=== PATIENT | male | born 1975 | race Caucasian/White ===

== ENCOUNTER 2017-03-19 06:16 | Emergency (ER) | payer SELFPAY | END 2017-03-19 07:45 | LOC: ED 06:16 | DX: B35.4 Tinea corporis (principal); B86 Scabies | CPT/HCPCS: 99283 ==

== ENCOUNTER 2017-03-31 18:13 | Emergency (ER) | payer SELFPAY ==
[~2017-03-31] VITALS: Ht 190.5 cm; Wt 93.3 kg
[2017-03-31 18:17] VITALS: BP 99/70
== END 2017-03-31 19:33 | disposition home or self-care (01) ==
LOC: ED 19:27
DX: T16.2XXA Foreign body in left ear, initial encounter (principal); Z90.49 Acquired absence of other specified parts of digestive tract; X58.XXXA Exposure to other specified factors, initial encounter; Y93.89 Activity, other specified; Y99.8 Other external cause status; Y92.89 Other specified places as the place of occurrence of the external cause
CPT/HCPCS: 69200

== ENCOUNTER 2017-06-08 13:00 | Emergency (ER) | payer OTHER ==
[~2017-06-08] VITALS: Ht 190.5 cm; Wt 92.9 kg
[2017-06-08 13:00] VITALS: BP 115/80
[2017-06-08] MEDS ORDERED: HYDROcodone/APAP 5/325 TABLET PO PRN (13:30)
[2017-06-08] MEDS ORDERED: KETOROLAC 30 MG/1 ML IM ONE (13:30)
[2017-06-08] MEDS ORDERED: KETOROLAC 30 MG/1 ML ONE (13:35)
[2017-06-08] MEDS ORDERED: HYDROcodone/APAP 5/325 TABLET ONE (13:35)
== END 2017-06-08 14:22 | disposition home or self-care (01) ==
LOC: ED 14:16
DX: M77.9 Enthesopathy, unspecified (principal)
CPT/HCPCS: 29125; 73110; 96372; 99284; J1885

== ENCOUNTER 2018-08-31 03:34 | Emergency (ER) | payer MEDICAID ==
[~2018-08-31] VITALS: Ht 190.5 cm; Wt 89.7 kg
[2018-08-31] MEDS ORDERED: KETOROLAC 30 MG/1 ML ONE (04:22)
[2018-08-31] MEDS ORDERED: KETOROLAC 30 MG/1 ML IM ONE (04:30)
[2018-08-31] MEDS ORDERED: HYDROcodone/APAP 5/325 TABLET PO PRN (04:30)
[2018-08-31 05:15] VITALS: BP 143/96
== END 2018-08-31 05:17 | disposition home or self-care (01) ==
LOC: ED 03:53
DX: S30.1XXA Contusion of abdominal wall, initial encounter (principal); F17.210 Nicotine dependence, cigarettes, uncomplicated; Z90.49 Acquired absence of other specified parts of digestive tract; W01.0XXA Fall on same level from slipping, tripping and stumbling without subsequent striking against object, initial encounter; Y93.89 Activity, other specified; Y99.8 Other external cause status; Y92.89 Other specified places as the place of occurrence of the external cause
CPT/HCPCS: 71101; 96372; 99284; J1885

== ENCOUNTER 2019-12-16 18:55 | Emergency (ER) | payer MEDICAID ==
[~2019-12-16] VITALS: Ht 190.5 cm; Wt 84.8 kg
[2019-12-16 19:03] VITALS: BP 129/87
--- NOTE | 2019-12-16 19:32 | NUR ---
NO ANSWER WHEN CALLED TO BE ROOMED @ 1916
--- NOTE | 2019-12-16 19:43 | NUR ---
NO ANSWER WHEN CALLED TO BE ROOMED @ 1943.
--- NOTE | 2019-12-16 20:06 | NUR ---
NO ANSWER WHEN CALLED TO BE ROOMED @ 2005.
== END 2019-12-16 20:13 | disposition left against medical advice (07) ==
LOC: ED 20:00
DX: M79.641 Pain in right hand (principal); Z53.21 Procedure and treatment not carried out due to patient leaving prior to being seen by health care provider

== ENCOUNTER 2019-12-20 13:09 | Emergency (ER) | payer MEDICAID ==
[~2019-12-20] VITALS: Ht 190.5 cm; Wt 82.9 kg
[2019-12-20 13:16] VITALS: BP 153/93
[2019-12-20] MEDS ORDERED: NEOSPORIN OINT. PKT 1 PACKET ONE (13:40)
[2019-12-20] MEDS ORDERED: DIPH,PERTUSS(ACELL),TET VAC/PF 0.5 ML IM-VACC ONE ×2 (13:48→14:00)
== END 2019-12-20 13:54 ==
LOC: ED 13:48
DX: L03.113 Cellulitis of right upper limb (principal); K21.9 Gastro-esophageal reflux disease without esophagitis; Z90.49 Acquired absence of other specified parts of digestive tract
CPT/HCPCS: 90471; 90715; 99283

== ENCOUNTER 2020-01-01 08:11 | Emergency (ER) | payer MEDICAID ==
[~2020-01-01] VITALS: Ht 190.5 cm; Wt 83.0 kg
[2020-01-01 08:13] VITALS: BP 160/104
--- NOTE | 2020-01-01 09:04 | NUR ---
Patient/Caregiver given discharge instructions and they have confirmed that they understand the instructions. Patient ambulatory with steady gait. PT LEFT WITH ALL PERSONAL BELONGINGS.
== END 2020-01-01 09:05 | disposition home or self-care (01) ==
LOC: ED 08:38
DX: L03.114 Cellulitis of left upper limb (principal); L03.113 Cellulitis of right upper limb; Z76.0 Encounter for issue of repeat prescription; K21.9 Gastro-esophageal reflux disease without esophagitis
CPT/HCPCS: 99281

== ENCOUNTER 2020-06-11 01:35 | Emergency (ER) | payer MEDICAID ==
[~2020-06-11] VITALS: Ht 190.5 cm; Wt 83.8 kg
[2020-06-11 01:39] VITALS: BP 132/79
--- NOTE | 2020-06-11 03:12 | NUR ---
PATIENT SIGNED AMA.
== END 2020-06-11 03:15 | disposition left against medical advice (07) ==
LOC: ED 03:00
DX: M54.5 Low back pain (principal); Z53.21 Procedure and treatment not carried out due to patient leaving prior to being seen by health care provider